=== PATIENT | female | born 1995 | race Hispanic/Latino ===

== ENCOUNTER 2018-10-10 00:38 | Outpatient (CLI) | payer OTHER ==
[2018-10-10] MEDS ORDERED: LACTATED RINGERS 1,000 ML IV ONE ×2 (01:13→04:49)
[2018-10-10 02:08] LABS: Bacteria,Urine 2+ /HPF (Negative); Bilirubin,Urine NEG (Negative); Blood,Urine NEG (Negative); Color,Urine Yellow (Yellow); Mucus,Urine FEW /HPF; Urobilinogen,Urine < 2.0 mg/dL (<2.0)
[2018-10-10 02:14] LABS: Amphetamine Screen,Urine PRESUMPTIVE NEGATIVE; Benzodiazepines Screen,Urine PRESUMPTIVE NEGATIVE; Cocaine Screen,Urine PRESUMPTIVE NEGATIVE; Methadone Screen,Urine PRESUMPTIVE NEGATIVE; Opiate Screen,Urine PRESUMPTIVE NEGATIVE
[2018-10-10 03:04] LABS: WBC,Urine > 182.0 /HPF (0.0-6.0)
[2018-10-10 03:23] LABS: Cannabinoid Screen,Urine PRESUMPTIVE POSITIVE
--- NOTE | 2018-10-10 04:30 | Ultrasound Report ---
PROCEDURE: US OB >= 14 WEEKS FETUS TECHNIQUE: Real-time transabdominal sonography of the uterus, placenta, amniotic fluid, adnexa, and fetus was performed with image documentation. Measurements were obtained to determine age/size. M-mode Doppler was used to document heartbeat. ADDITIONAL GESTATION: None HISTORY: contractions COMPARISONS: None. FINDINGS: MATERNAL: Uterus and cervix: The cervix is closed measures 3.7 cm in length. Adnexa and ovaries: Not visualized. IUP: Single live intrauterine gestation. Position: Cephalic Placental position: Posterior, without previa . Amniotic fluid volume Normal. KAYCEE is 17.1 cm. Cardiac activity: Heart rate was not recorded. ANATOMY: Face/lips/nose: Normal. Cerebral ventricles: Normal. Cisterna magna/cerebellum: Normal. Heart: Normal. Stomach: Normal. Umbilical cord: 3 vessel umbilical cord with normal insertion. Kidneys: Normal. Bladder: Normal. Spine: Normal. Extremities: Normal. BIOMETRY: Biparietal diameter: 8.4 cm corresponding to 34 weeks. Head circumference: 30 cm corresponding to 33 weeks and 2 days. abdominal circumference: 28 cm corresponding to 32 weeks. Femur length: 6.2 cm corresponding to 32 weeks 1 day. Ratio biometry: Normal . Estimated Weight: 1955 grams +/- 289 grams. Mean Gestational Age (composite criteria) based on today's measurements: 32 weeks and 6 days. Estimated Due Date (earliest scan): 11/29/2018. IMPRESSION: Single live intrauterine gestation at 32 weeks and 6 days. Estimated due date: 10/01/2018. There is no evidence of placenta previa or abruption. This document is electronically signed by Jose L Avila MD., October 10 2018 04:28:15 AM ET
[2018-10-10] MEDS: BRETHINE SUB-Q SCH ×3 (05:00→06:12)
[2018-10-10] MEDS ORDERED: BRETHINE ONE (05:30)
[2018-10-10] MEDS ORDERED: CELESTONE SOLUSPAN IM ONE (05:46)
--- NOTE | 2018-10-10 06:25 | Event Note ---
Date: 10/10/18 23 y.o. IUP at approx 32 weeks by EDC given by patient upon arrival. Patient presents to triage with c/o abdominal pain and pressure. Patient reports "like contractions, but it's not contractions". Patient reports noting "small brown spotting" prior to arrival to triage. She reports +FM, denies LOF. Abdomen palpated soft, non tender. TOCO shows irritability, with some irregular mild contractions. Category 1 tracing of FHTs. Patient reports a hx of , uncomplicated, 39 wks in 2016 and "emergency c/s for short cervix, Preeclampsia, and abruption when I was 4 months " in 2017. She reports Recent incarceration from Aug 13, 2018 until 2 weeks ago. Her only care she received was in [facility] while incarcerated. She reports being inpatient in [facility] in [place] 2 weeks ago for contractions/ labor. Patient reports receiving IV mag infusion, steroids, Terbutaline, IV fluids. She states that the labor stopped and she was discharged with SVE 3 cm. Per senior office support assistant sosa, SVE remains 3 cm at this time. Records obtained from [facility] confirm 3 cm SVE as inpatient there and BMZ x1, patient signed out AMA prior to 2nd dose. Terb series to be given now, along with continued IV fluids. Will give one dose of BMZ at this time per Dr. Manriquez. Will continue to monitor at this time.
[2018-10-10 07:39] VITALS: BP 97/56
== END 2018-10-10 07:49 | disposition home or self-care (01) ==
LOC: TRG 00:38
PROVIDERS: ATTEND Obstetrics & Gynecology
DX: O26.893 Other specified pregnancy related conditions, third trimester (principal); O62.9 Abnormality of forces of labor, unspecified; R10.9 Unspecified abdominal pain; O26.853 Spotting complicating pregnancy, third trimester; O99.343 Other mental disorders complicating pregnancy, third trimester; F41.9 Anxiety disorder, unspecified; Z87.891 Personal history of nicotine dependence; Z3A.32 32 weeks gestation of pregnancy
CPT/HCPCS: 59025; 76805; 80307; 81001; 96360; 96361; 96372; J0702; J3105; J7120